=== PATIENT | male | born 1945 | race Caucasian/White ===

== ENCOUNTER 2018-04-18 07:26 | Day surgery (SDC) | payer MEDICARE ==
--- NOTE | 2018-04-15 16:41 | HP ---
CC: Frank Berger MD * HISTORY AND PHYSICAL: DATE OF PLANNED ADMISSION AND SURGERY: 04/18/18 HISTORY OF PRESENT ILLNESS: Mr. Diane is a 72-year-old white male who is admitted with a left ureteral calculus for cystoscopy, left ureteroscopy, laser lithotripsy, and left ureteral stent insertion. Mr. Diane is a known stone former and five years ago, he required a left ureteroscopy, laser lithotripsy, and stent insertion. He was doing well until about 10 days when he started having episodes of left flank pain. There was no fever or chills. He had a renal ultrasound in the office, which showed a 6 mm calculus in the proximal left ureter associated with mild hydronephrosis. He was managed conservatively and was evaluated a week later with a KUB. The KUB continued to show a 6 mm radiopaque calculus in the mid left ureter. No other abnormal calcifications were noted. Past history is relevant for PSA elevation and prostate enlargement. His PSA has been stable at the vicinity of 4.5. He has been on no medications for his voiding. PAST MEDICAL HISTORY AND SYSTEM REVIEW: He is in excellent health. His only medication is eye drops for glaucoma. He denies any cardiac or pulmonary diseases or symptoms. He is fit and healthy and active. He denies any allergies to medications. PHYSICAL EXAMINATION GENERAL: Pleasant, healthy looking white male, who looks good for his age. VITAL SIGNS: Blood pressure 150/90. LUNGS: Clear. HEART: Regular and rhythmic. No murmurs. ABDOMEN: Soft. No masses, no tenderness; however, there is mild left CVA tenderness. EXTERNAL GENITALIA: Normal. RECTAL: Exam had showed an enlarged, but nonsuspicious prostate. LABORATORY DATA: Urinalysis showed +3 blood, negative otherwise. Urine culture showed no infection. IMPRESSION: A 6 mm mid left ureteral calculus associated with mild hydronephrosis in the same location for the last 10 days with on and off episodes of left flank pain. PLAN: Plan is for cystoscopy, left ureteroscopy, laser lithotripsy, and left ureteral stent placement. If the ureter is found to be edematous or the stone cannot be reached, stent will be placed and the procedure would be staged. I discussed the above plans in detail with the patient. Some of the potential complications including infection and urethral stricture were discussed. All his questions were answered. [id number]/[facility] #: [id number] MTDD
[~2018-04-18 07:26] MED LIST: Buffered Lidocaine 0.9% SYRIN* 5 ML/SYR SYRINGE INTRADERM ONE; Sodium Citrate/Citric Acid* 15 ML UDC PO ONE
[2018-04-18] MEDS ORDERED: cefTRIAXone(*) 1 GM ADVAN/BAG ONE (07:36)
[2018-04-18] MEDS ORDERED: Sodium Citrate/Citric Acid* 15 ML UDC ONE (07:36)
[2018-04-18] MEDS ORDERED: Iohexol 180 (CONTRAST) 10 ML SDV IV ONE (09:39)
[2018-04-18] MEDS ORDERED: fentaNYL* 50 MCG/ML 2 ML VIAL (100 MCG VIAL) ONE (10:01)
[2018-04-18] MEDS ORDERED: Propofol* 10 MG/ML 20 ML BTL IV PUSH ONE (10:08)
[2018-04-18] MEDS ORDERED: Lidocaine 2% PF * 5 ML VIAL ONE (10:08)
[2018-04-18] MEDS ORDERED: EPHEDrine (Pressors)* 50 MG/ML VIAL ONE (10:41)
[2018-04-18] MEDS ORDERED: Ondansetron INJ* 2 MG/ML VIAL IV PRN (11:10)
[2018-04-18] MEDS ORDERED: Naloxone* 0.4 MG/ML 1 ML VIAL IV PRN (11:10)
[2018-04-18] MEDS ORDERED: fentaNYL* 50 MCG/ML 2 ML VIAL (100 MCG VIAL) IV PRN (11:10)
--- NOTE | 2018-04-18 11:29 | RAD ---
INDICATION: Left ureteral stent insertion. COMPARISON: Comparison is made with a prior KUB from April 15, 2018. TECHNIQUE: 21 seconds of intermittent fluoroscopic guidance were provided and 5 spot films of the abdomen were centered on the left side. FINDINGS: There is partial opacification of the left renal collecting system. Subsequently there is placement of a double-J stent catheter on the left side which demonstrates normal course. IMPRESSION: INTRAOPERATIVE CONTROL FILMS. CPT II Codes: G9500
[2018-04-18 11:35] VITALS: BP 171/90
--- NOTE | 2018-04-19 01:52 | OP ---
CC: Dr. Frank Berger MD * DATE OF OPERATION: 04/18/18 - [facility] DATE OF : 47 SURGEON: Robe Tran MD ANESTHESIOLOGIST: Tres Rosa DO ANESTHESIA: General. PRE-OP DIAGNOSIS: Mid left ureteral calculus (6 mm). POST-OP DIAGNOSIS: Mid left ureteral calculus (6 mm). OPERATIVE PROCEDURES: 1. Cystoscopy. 2. Left ureteroscopy. 3. Katie lithotripsy of left ureteral calculus. 4. Left retrograde pyelography and placement of left ureteral stent (6-[place]er). INDICATION FOR PROCEDURE: Mr. Diane is a 72-year-old white male who presented about 10 days ago with symptoms of left renal colic and was noted on work-up to have a 6 mm calculus in the mid left ureter. He was managed conservatively as his pain improved. Follow-up KUB 3 days ago showed the stone to be still in the same position in the mid ureter. Because of the above history and findings, the above procedure was advised and accepted. PATHOLOGY AT CYSTOSCOPY: The penile and bulbar urethrae looked normal. The prostatic urethra measured 2.5 to 3 cm in length and there was moderate degree of obstruction by a trilobar hyperplasia of the prostate and a rather prominent median lobe and elevated bladder neck. Examination of the bladder showed normal mucosa. No suspicious bladder lesions were seen. The ureteral orifices looked normal. At fluoroscopy, radiopaque calculus measuring 6 to 7 mm was noted in the mid ureter. Upon left ureteroscopy, the calculus was noted in the mid ureter. It was impacted. It had the gross appearance of a calcium oxalate stone. DESCRIPTION OF PROCEDURE: After successful general anesthesia, the patient was placed in the lithotomy position and was prepped and draped for cystoscopy. Cystoscopy was performed. The bladder was inspected and the above findings were noted. A flexible tip guidewire was then introduced into the right orifice and positioned in the area of the renal pelvis. A size 6.5 semi-rigid ureteroscope was then introduced inside the bladder. A flexible tipped basket was then introduced through the port of the ureteroscope and the flexible tip was introduced into the left ureter alongside the guidewire. That allowed the atraumatic introduction of the ureteroscope inside the ureter. The ureter yielded easily to the scoping. The calculus was identified. The basket was then removed. A 650 micron laser fiber was then introduced into the port of the ureteroscope and the stone was broken with the laser energy into multiple fragments. The fragments were then extracted with the basket. Final inspection showed intact ureteral wall with some edema of the ureteral mucosa from the stone impaction. There were no residual stone fragments noted. Retrograde pyelography was then performed. A size 6-[place]er stent was then placed with the proximal end coiling in renal pelvis and distal end coiling inside the bladder. There was good drainage of contrast from the kidney and no extravasation. A size 16 [place] Tilley catheter was placed. The patient tolerated the procedure well and left the operating room in good condition. The plan is to leave the stent in place for about 10 days. It will be removed in the office under local anesthesia. [id number]/[facility] #: [id number] MTDD
== END 2018-04-18 12:22 | disposition home or self-care (01) ==
LOC: OR 07:26
PROVIDERS: ATTEND Urology
DX: N13.2 Hydronephrosis with renal and ureteral calculous obstruction (principal); Z87.442 Personal history of urinary calculi; N40.1 Benign prostatic hyperplasia with lower urinary tract symptoms; N13.8 Other obstructive and reflux uropathy
CPT/HCPCS: 36415; 74420; 82365; 86803; 88300; A9270-GY; C1876; J0696; J2704; J3010